=== PATIENT | female | born 1970 | race Caucasian/White ===

== ENCOUNTER 2017-03-20 20:58 | Emergency (ER) | payer MEDICAID ==
[~2017-03-20] VITALS: Ht 139.7 cm; Wt 61.4 kg
[~2017-03-20 20:58] MED LIST: /ESCI20TA PO; CHLO25TA PO; CLON1TAB PO; ESTR25TD TD; KLON0.5T PO; LEXA1TAB PO; NAPR500T3 PO; PERC5TAB12 PO; VENL75TA3 PO; VITA500046 PO
[2017-03-20] MEDS ORDERED: KETOROLAC 30 MG/ML VIAL (J1885) IV ONE (22:15)
[2017-03-20] MEDS ORDERED: TRIMETHOBENZAMIDE HCL INJ 200 MG/2 ML VIAL (J3250) IM ONE (22:15)
[2017-03-20 22:35] LABS: BASO # 0.1 K/mm3 (0.0-0.2); EOS # 0.2 K/mm3 (0.0-0.50); EOS % 1.8 % (0.0-3.0); LARGE UNSTAINED CELL # 0.1 K/mm3 (0.0-0.4); LARGE UNSTAINED CELL % 1.6 % (0.0-4.0); LYMPH # 4.2 K/mm3 (1.5-4.5); LYMPH % 45.2 % (24.0-44.0); MEAN CORPUSCULAR HEMOGLOBIN 28.5 pg (27.0-33.0); MEAN CORPUSCULAR HGB CONC 33.7 g/dl (32.0-36.5); MEAN CORPUSCULAR VOLUME 84.5 fl (80.0-96.0); MONO # 0.4 K/mm3 (0.0-0.8); MONO % 3.9 % (0.0-5.0); NEUTROPHILS # 4.2 K/mm3 (1.8-7.7); NEUTROPHILS % 46.6 % (36.0-66.0); PLATELET COUNT, AUTOMATED 415 k/mm3 (150-450); RED CELL DISTRIBUTION WIDTH 13.8 % (11.5-14.5); WHITE BLOOD COUNT 8.9 K/mm3 (4.0-10.0)
[2017-03-20 23:04] LABS: ALBUMIN/GLOBULIN RATIO 1.08 (1.00-1.93); ALKALINE PHOSPHATASE 101 U/L (45-117); ALT/SGPT 40 U/L (12-78); ANION GAP 5 MEQ/L (8-16); AST/SGOT 23 U/L (15-37); BILIRUBIN,TOTAL 0.2 MG/DL (0.2-1.0); BLOOD UREA NITROGEN 8 MG/DL (7-18); CALCIUM LEVEL 9.6 MG/DL (8.5-10.1); CARBON DIOXIDE LEVEL 30 MEQ/L (21-32); CHLORIDE LEVEL 105 MEQ/L (98-107); CREATININE FOR GFR 0.75 MG/DL (0.55-1.02); GLOMERULAR FILTRATION RATE > 60.0 (>58); GLUCOSE, FASTING 90 MG/DL (70-105); POTASSIUM SERUM 3.4 MEQ/L (3.5-5.1); SODIUM LEVEL 140 MEQ/L (136-145); TOTAL PROTEIN 7.7 GM/DL (6.4-8.2)
--- NOTE | 2017-03-21 00:20 | REPUSA ---
CLINICAL HISTORY: Abdominal pain. TECHNIQUE: Multiple axial, sagittal and coronal CT images were obtained through the abdomen and pelvi s without administration of oral or IV contrast material. COMMENTS: Comparison is made to the prior exam performed on 01/03/2016. The liver remains mildly enlarged decreased attenuation without mass or defect. There is no intra or extrahepatic biliary ductal dilatation. The spleen is normal. The gallbladder is surgically absent. T he pancreas is of normal contour and attenuation characteristics. There is no evidence of adrenal mas s. 6.2 mm left renal nonobstructing stone. Mild changes of facet or mesenteric panniculitis. The kidneys are normal in size, shape and configuration. No right renal or ureteral calculi are ident ified. There is no hydroureter or hydronephrosis. There is no evidence for appendicitis. There is no bowel wall thickening. No evidence for small or la rge bowel obstruction. There is no evidence of abdominal ascites or lymphadenopathy. There is no evidence of intrinsic or extrinsic bladder mass. There is no pelvic ascites or lymphadeno roselia. Fluid-filled stomach. Fluid-filled proximal colon. Prior hysterectomy. Diffusely thickened urinary bl adder. Images of the lung bases show no evidence of pleural or parenchymal mass. There are no pleural effusi ons. The bony structures are free of lytic or blastic lesions. Multilevel degenerative changes are seen in volving the thoracolumbar spine. Scattered calcifications are seen involving the aorta and major branches compatible with atherosclero sis. Fat containing umbilical hernia without incarceration. IMPRESSION: Nonobstructing left nephrolithiasis. Mildly thickened bladder. Under distention versus cystitis. Prior hysterectomy. Hepatomegaly with fatty infiltration. Prior cholecystectomy. Thank you for your kind referral of this patient.
[2017-03-21 00:37] VITALS: BP 132/82
[2017-03-21] MEDS ORDERED: NITROFURANTOIN (MACROBID) 100 MG CAP PO ONE (00:45)
[2017-03-21] MEDS ORDERED: MACR100C43 PO (00:47)
== END 2017-03-21 01:04 | disposition home or self-care (01) ==
LOC: M ED 20:58
DX: N39.0 Urinary tract infection, site not specified (principal); N20.0 Calculus of kidney; I10 Essential (primary) hypertension
CPT/HCPCS: 74176; 80053; 81001; 81025; 85025; 86140; 87086; 96372; 96374; 99283; J1885; J3250

== ENCOUNTER 2017-05-17 13:03 | Emergency (ER) | payer MEDICAID ==
[~2017-05-17] VITALS: Ht 142.2 cm; Wt 61.4 kg
[~2017-05-17 13:03] MED LIST changes: +MACR100C43 PO
[2017-05-17] MEDS ORDERED: EXCETAB80 PO (13:23)
[2017-05-17] MEDS ORDERED: METOCLOPRAMIDE INJ 10MG/2ML VIAL (J2765) IV ONE (14:30)
[2017-05-17] MEDS ORDERED: NS 1,000 ML IV ONE (14:30)
--- NOTE | 2017-05-17 14:44 | REP ---
Clinical: Trauma with severe headaches . Comparison: None . Findings: The ventricles, sulci, and cisterns are normal in position and appearance. Krishnan-white differentiation is maintained. No acute intracranial hemorrhage, mass/mass effect, pathology or trauma/injury. No evidence for acute infarction. No extra-axial fluid collection. Calvarium is intact. Paranasal sinuses and mastoid air cells are clear. Impression: Normal noncontrast head CT. No evidence for acute intracranial pathology or trauma/injury. Signed by Naren Cole MD 05/17/2017 02:35 P
[2017-05-17] MEDS ORDERED: KETOROLAC 30 MG/ML VIAL (J1885) IV ONE (14:45)
[2017-05-17] MEDS ORDERED: ZOFR4TAB3 PO (16:03)
[2017-05-17 16:11] VITALS: BP 133/70
== END 2017-05-17 16:15 | disposition home or self-care (01) ==
LOC: M ED 13:03
DX: G43.109 Migraine with aura, not intractable, without status migrainosus (principal); Z72.0 Tobacco use
CPT/HCPCS: 70450; 96374; 96375; 99283; J1885; J2765

== ENCOUNTER 2017-08-16 15:20 | Emergency (ER) | payer MEDICAID ==
[~2017-08-16] VITALS: Ht 139.7 cm; Wt 59.1 kg
[~2017-08-16 15:20] MED LIST changes: +EXCETAB80 PO; +ZOFR4TAB3 PO
[2017-08-16 16:03] LABS: SPECIFIC GRAVITY UR AUTO RFX 1.003 (1.002-1.035); SQUAM EPITHELIAL CELL UR AURFX 3 /HPF (0-6)
[2017-08-16 16:31] LABS: BASO # 0.1 10^3/uL (0.0-0.2); BASO % 0.8 % (0.0-1.0); EOS # 0.1 10^3/uL (0.0-0.50); EOS % 0.9 % (0.0-3.0); IMMATURE GRANULOCYTE % 0.2 % (0-0); LYMPH % 44.2 % (24.0-44.0); MEAN CORPUSCULAR HEMOGLOBIN 28.7 pg (27.0-33.0); MEAN CORPUSCULAR HGB CONC 34.5 g/dl (32.0-36.5); MEAN CORPUSCULAR VOLUME 83.1 fl (80.0-96.0); MONO # 0.4 10^3/uL (0.0-0.8); MONO % 4.7 % (0.0-5.0); NEUTROPHILS # 4.4 10^3/uL (1.8-7.7); NEUTROPHILS % 49.2 % (36.0-66.0); PLATELET COUNT, AUTOMATED 443 10^3/uL (150-450); RED CELL DISTRIBUTION WIDTH 13.4 % (11.5-14.5)
[2017-08-16 16:53] LABS: ALBUMIN 4.4 GM/DL (3.2-5.2); ALBUMIN/GLOBULIN RATIO 1.16 (1.00-1.93); ALKALINE PHOSPHATASE 98 U/L (45-117); ALT/SGPT 34 U/L (12-78); ANION GAP 8 MEQ/L (8-16); AST/SGOT 20 U/L (7-37); BILIRUBIN,DIRECT < 0.1 MG/DL (0.0-0.2); BILIRUBIN,TOTAL 0.4 MG/DL (0.2-1.0); BLOOD UREA NITROGEN 7 MG/DL (7-18); CALCIUM LEVEL 9.8 MG/DL (8.5-10.1); CARBON DIOXIDE LEVEL 31 MEQ/L (21-32); CHLORIDE LEVEL 102 MEQ/L (98-107); CREATININE FOR GFR 0.77 MG/DL (0.55-1.02); GLOMERULAR FILTRATION RATE > 60.0 (>58); GLUCOSE, FASTING 80 MG/DL (70-105); POTASSIUM SERUM 3.4 MEQ/L (3.5-5.1); SODIUM LEVEL 141 MEQ/L (136-145); TOTAL PROTEIN 8.2 GM/DL (6.4-8.2)
[2017-08-16] MEDS ORDERED: POTASSIUM CHLORIDE 10 MEQ SR TABLET PO ONE (17:15)
[2017-08-16] MEDS ORDERED: CIPROFLOXACIN 500 MG TAB PO ONE (17:15)
[2017-08-16] MEDS ORDERED: CIPR-249 PO (17:26)
[2017-08-16] MEDS ORDERED: PERC5TAB12 PO (17:26)
[2017-08-16 17:51] VITALS: BP 168/72
--- NOTE | 2017-08-17 07:17 | REP ---
REASON: Left flank pain. COMPARISON: 03/20/2017. The lung bases are clear and unchanged. Limited evaluation of the solid intra-abdominal organs are unchanged remaining within normal limits. The patient is status post cholecystectomy. Limited evaluation of the pancreas, adrenals glands, and right kidney show no abnormalities. There is moderate left sided hydronephrosis and hydroureter which can be followed distally into the proximal pelvis where a 9 mm sized ureterolith resides. There is no free fluid in the abdomen or pelvis. The bowel loops and the mesenteries are within normal limits. There is no evidence of an intra-abdominal or intrapelvic mass or adenopathy. Limited evaluation of the abdominal aorta and para-aortic regions show them to be within normal limits. There is no change in the osseous structures. IMPRESSION: 9 mm sized distal left ureterolith with resultant moderate hydronephrosis. Signed by Lloyd Black DO 08/17/2017 08:55 A
--- NOTE | 2017-08-17 08:40 | REP ---
REASON FOR EXAM: Assess for calculi. COMPARISON: KUB 12/07/2012. FINDINGS: KUB shows the intestinal gas pattern to be nonspecific. The organ silhouettes insofar as delineated are unremarkable. There is no evidence of free intraperitoneal air. IMPRESSION: Nonspecific. Signed by Lloyd Black DO 08/17/2017 08:56 A
== END 2017-08-16 17:52 | disposition home or self-care (01) ==
LOC: M ED 15:20
DX: N20.1 Calculus of ureter (principal); Z87.891 Personal history of nicotine dependence

== ENCOUNTER → 2017-08-25 | Outpatient (CLI) | payer MEDICAID ==
[~2017-08-25] MED LIST changes: +CIPR-249 PO; +TYLE500T78 PO
[2017-08-25 12:29] LABS: MEAN CORPUSCULAR HEMOGLOBIN 28.5 pg (27.0-33.0); MEAN CORPUSCULAR HGB CONC 33.8 g/dl (32.0-36.5); MEAN CORPUSCULAR VOLUME 84.2 fl (80.0-96.0); PLATELET COUNT, AUTOMATED 409 10^3/uL (150-450); RED CELL DISTRIBUTION WIDTH 13.8 % (11.5-14.5); WHITE BLOOD COUNT 8.7 10^3/uL (4.0-10.0)
[2017-08-25 12:41] LABS: INR 0.93
[2017-08-25 13:21] LABS: ANION GAP 9 MEQ/L (8-16); BLOOD UREA NITROGEN 7 MG/DL (7-18); CALCIUM LEVEL 9.3 MG/DL (8.5-10.1); CARBON DIOXIDE LEVEL 29 MEQ/L (21-32); CHLORIDE LEVEL 103 MEQ/L (98-107); CREATININE FOR GFR 0.67 MG/DL (0.55-1.02); GLOMERULAR FILTRATION RATE > 60.0 (>58); GLUCOSE, FASTING 83 MG/DL (70-105); POTASSIUM SERUM 3.2 MEQ/L (3.5-5.1); SODIUM LEVEL 141 MEQ/L (136-145)
--- NOTE | 2017-08-25 15:03 | REP ---
Chest x-ray: Two views. History: Preprocedural examination. Comparison chest x-ray: August 13, 2015. Findings: The lungs are well inflated and free of infiltrate. Pleural angles are sharp. Heart size is normal. Pulmonary vasculature is not increased. There are clips in right upper quadrant of the abdomen. No significant bony abnormality. Impression: No acute disease. Signed by Rahat Ogden MD 08/25/2017 04:14 P
--- NOTE | 2017-08-26 06:10 | ECGEPIP ---
Stationary ECG Study [facility] Test Date: 2017-08-25 Pat Name: RUTH AGUILAR Department: Room: - Gender: F Dish Person: RENÉ : 1970 Requested By: Sarah MAC Order Number: [id number] Reading MD: Deric Christianson Measurements Intervals [place] Rate: 74 P: 36 VA: 162 QRS: 33 QRSD: 99 T: 19 QT: 430 QTc: 479 Interpretive Statements SINUS RHYTHM MODERATE T-WAVE ABNORMALITY, CONSIDER ANTERIOR ISCHEMIA Electronically Signed On 08-26-2017 6:09:56 EST by Deric Christianson
== END ==
LOC: M LAB 11:53
PROVIDERS: ATTEND Nurse Practitioner Women's Health
DX: Z01.818 Encounter for other preprocedural examination (principal); N13.2 Hydronephrosis with renal and ureteral calculous obstruction; R94.31 Abnormal electrocardiogram [ECG] [EKG]

== ENCOUNTER 2017-08-29 08:21 | Day surgery (SDC) | payer MEDICAID ==
[~2017-08-29] VITALS: Ht 139.7 cm; Wt 59.0 kg
[2017-08-29] MEDS ORDERED: ceFAZolin 2 GM/D5W 50 ML IV BAG (J0690 PER 500MG) As Ordered ONE (08:45)
[2017-08-29] MEDS ORDERED: LIDOCAINE 1% MDV 20ML VIAL SQ PRN (09:00)
[2017-08-29] MEDS ORDERED: LR 1,000 ML IV ONE (09:00)
[2017-08-29] MEDS ORDERED: CONRAY-60 60% 50ML VIAL (Q9961) As Ordered ONE (09:57)
[2017-08-29] MEDS ORDERED: ONDANSETRON 4MG/2ML VIAL (J2405) As Ordered ONE (09:58)
[2017-08-29] MEDS ORDERED: METOCLOPRAMIDE INJ 10MG/2ML VIAL (J2765) As Ordered ONE (09:58)
[2017-08-29] MEDS ORDERED: LIDOCAINE 2% INJ 100 MG/5 ML SDV (FOR ANES.) As Ordered ONE (09:58)
[2017-08-29] MEDS ORDERED: MIDAZOLAM INJ 2 MG/2 ML VIAL (J2250) As Ordered ONE (09:58)
[2017-08-29] MEDS ORDERED: fentaNYL 100 MCG/2 ML INJECTION (J3010) As Ordered ONE ×2 (09:58→12:04)
[2017-08-29] MEDS ORDERED: PROPOFOL 200 MG/20 ML VIAL As Ordered ONE (09:58)
[2017-08-29] MEDS ORDERED: KETOROLAC 60 MG/2 ML VIAL (J1885) As Ordered ONE (11:10)
[2017-08-29] MEDS ORDERED: fentaNYL 100 MCG/2 ML INJECTION (J3010) IV PRN (13:15)
[2017-08-29] MEDS ORDERED: PERCOCET 5MG/325MG TAB PO PRN ×3 (13:15)
[2017-08-29] MEDS ORDERED: LR 1,000 ML IV SCH (13:15)
[2017-08-29] MEDS ORDERED: ONDANSETRON 4MG/2ML VIAL (J2405) IV PRN (13:15)
[2017-08-29] MEDS ORDERED: oxyBUTYnin 5 MG TAB PO PRN (13:15)
--- NOTE | 2017-08-29 13:41 | REP ---
RETROGRADE PYELOGRAM: Three views. HISTORY: Left stent placement. 40 seconds of fluoroscopy time is reported. FINDINGS: A sequence of three last image hold fluoroscopic spot radiographs of the abdomen document ureteral cannulation, contrast injection, hydronephrosis, and double pigtail ureteral stent placement. No laterality markers are visible. Signed by Rahat Ogden MD 08/29/2017 03:49 P
[2017-08-29 14:30] VITALS: BP 146/80
--- NOTE | 2017-09-02 16:15 | RO ---
DATE OF PROCEDURE: 08/29/2017 PREPROCEDURE DIAGNOSIS: Left ureteral stone. POSTPROCEDURE DIAGNOSIS: Left ureteral stone. PROCEDURE: Cystoscopy, left ureteroscopy with laser lithotripsy and basket extraction of stones, left retrograde pyelogram with intraoperative interpretation of images, left JJ ureteral stent placement. SURGEON: Tato García MD LICENSED APPRAISER: None. PREOPERATIVE ANESTHESIA: General. OPERATIVE INDICATIONS: This is a 47-year-old female who was found to have approximately 1 cm obstructing mid to distal left ureteral stone. She was brought to the operating room today for treatment. DESCRIPTION OF PROCEDURE: The patient was brought to the operating room and general anesthesia was induced. Prophylactic antibiotics were infused. She was then placed in dorsal lithotomy position, prepped and draped in the usual sterile fashion. A rigid cystoscope was inserted into the urethral meatus and advanced to the bladder. Once in the bladder, a guidewire was advanced up the left collecting system. I went up the collecting system and within the mid to distal ureter a stone was seen and it appeared to be very much impacted. At this point, I began using a 200 micron laser fiber to try fragment the stone into smaller pieces. Some of the stone fragments were removed with the basket. Of note, there was a moderate amount of scarring in this area and this made it very hard to get to rest of the stone. I spent a significant amount of time trying to fragment the stone and remove the pieces, but due to all the scarring I was not able to get all the stone removed at this time. I tried to advance the scope passed the stone and due to a large amount of stone left within the ureter I could not get pass the stone either. While doing this with fear of damaging the ureter more, the decision was made to stop at this point and place a stent. I therefore withdrew the ureteroscope and advanced an open-ended ureteral catheter up in to the proximal left collecting system. The wire was removed and a retrograde pyelogram was performed. It was notable for severe left hydroureteronephrosis. There was no extravasation. The wire was then advanced back up the left collecting system and the open-ended ureteral catheter was removed. The wire was then utilized to advance a 7-Prydeinig x 22-32 cm JJ ureteral stent up the left collecting system. The wire was then removed and there were adequate curls of the stent in the left renal pelvis and in the bladder. The bladder was then emptied of all fluid and this marked the conclusion of the procedure. The patient was then taken out of dorsal lithotomy position, awakened from anesthesia and transported to the recovery room in stable condition. ESTIMATED BLOOD LOSS: Minimal. INTRAOPERATIVE COMPLICATIONS: None. SPECIMENS: Kidney stone fragments. PLAN: The patient will require another procedure to try to finish removing the rest of the stone. I will leave the stent in for about 4-6 weeks to allow some time for the ureter to heal and then plan to bring her back to the operating room at that time to try to remove the remainder of the stone. EMMA
== END 2017-08-29 14:50 | disposition home or self-care (01) ==
LOC: M SDC 08:21
PROVIDERS: ATTEND Urology
DX: N20.1 Calculus of ureter (principal); T88.59XD Other complications of anesthesia, subsequent encounter; I10 Essential (primary) hypertension; K21.9 Gastro-esophageal reflux disease without esophagitis; G80.9 Cerebral palsy, unspecified; F41.9 Anxiety disorder, unspecified; F32.9 Major depressive disorder, single episode, unspecified; G43.909 Migraine, unspecified, not intractable, without status migrainosus; R06.83 Snoring; G47.33 Obstructive sleep apnea (adult) (pediatric); E87.6 Hypokalemia; Z88.5 Allergy status to narcotic agent; Z88.8 Allergy status to other drugs, medicaments and biological substances; Z79.899 Other long term (current) drug therapy; Z90.710 Acquired absence of both cervix and uterus; Z98.51 Tubal ligation status; Z87.891 Personal history of nicotine dependence
CPT/HCPCS: 52356; 74420; 82360; 88300; C1769; C2617; J0690; J1885; J2250; J2405; J2765; J3010; Q9961

== ENCOUNTER → 2017-09-30 | Outpatient (CLI) | payer MEDICAID ==
[2017-09-30 17:57] LABS: ANION GAP 7 MEQ/L (8-16); BLOOD UREA NITROGEN 10 MG/DL (7-18); CALCIUM LEVEL 10.2 MG/DL (8.5-10.1); CARBON DIOXIDE LEVEL 34 MEQ/L (21-32); CHLORIDE LEVEL 104 MEQ/L (98-107); CREATININE FOR GFR 0.85 MG/DL (0.55-1.02); GLOMERULAR FILTRATION RATE > 60.0 (>58); GLUCOSE, FASTING 90 MG/DL (70-100); POTASSIUM SERUM 4.1 MEQ/L (3.5-5.1); SODIUM LEVEL 145 MEQ/L (136-145)
[2017-09-30 19:23] LABS: HEMATOCRIT 41.9 % (36.0-47.0); HEMOGLOBIN 13.8 g/dl (12.0-16.0); MEAN CORPUSCULAR HEMOGLOBIN 27.9 pg (27.0-33.0); MEAN CORPUSCULAR HGB CONC 32.9 g/dl (32.0-36.5); MEAN CORPUSCULAR VOLUME 84.8 fl (80.0-96.0); PLATELET COUNT, AUTOMATED 440 10^3/uL (150-450); RED BLOOD COUNT 4.94 10^6/uL (4.00-5.40); RED CELL DISTRIBUTION WIDTH 13.6 % (11.5-14.5)
== END ==
LOC: M SMT 12:02
DX: N20.0 Calculus of kidney (principal); N39.0 Urinary tract infection, site not specified

== ENCOUNTER → 2017-10-03 | Outpatient (REF) | payer MEDICAID | LOC: M SMT 13:32 | DX: N20.0 Calculus of kidney (principal); N39.0 Urinary tract infection, site not specified; Z01.818 Encounter for other preprocedural examination ==

== ENCOUNTER → 2017-10-07 | Outpatient (CLI) | payer MEDICAID ==
[2017-10-07 12:42] LABS: ANION GAP 9 MEQ/L (8-16); BLOOD UREA NITROGEN 8 MG/DL (7-18); CALCIUM LEVEL 9.6 MG/DL (8.5-10.1); CARBON DIOXIDE LEVEL 29 MEQ/L (21-32); CHLORIDE LEVEL 104 MEQ/L (98-107); GLOMERULAR FILTRATION RATE > 60.0 (>58); GLUCOSE, FASTING 77 MG/DL (70-100); POTASSIUM SERUM 3.5 MEQ/L (3.5-5.1); SODIUM LEVEL 142 MEQ/L (136-145)
== END ==
LOC: M LAB 11:30
DX: E87.6 Hypokalemia (principal)
CPT/HCPCS: 80048

== ENCOUNTER 2017-10-09 15:17 | Emergency (ER) | payer MEDICAID ==
[2017-10-09] MEDS: ASPIRIN 81 MG CHEW TABLET PO (16:33)
[2017-10-09 16:38] LABS: BASO # 0.1 10^3/uL (0.0-0.2); BASO % 0.8 % (0.0-1.0); EOS # 0.1 10^3/uL (0.0-0.50); EOS % 0.9 % (0.0-3.0); HEMATOCRIT 39.7 % (36.0-47.0); HEMOGLOBIN 13.3 g/dl (12.0-16.0); IMMATURE GRANULOCYTE % 0.2 % (0-0); LYMPH # 3.9 10^3/uL (1.5-4.5); LYMPH % 37.7 % (24.0-44.0); MEAN CORPUSCULAR HEMOGLOBIN 27.9 pg (27.0-33.0); MEAN CORPUSCULAR HGB CONC 33.5 g/dl (32.0-36.5); MEAN CORPUSCULAR VOLUME 83.4 fl (80.0-96.0); MONO # 0.6 10^3/uL (0.0-0.8); MONO % 5.8 % (0.0-5.0); NEUTROPHILS # 5.7 10^3/uL (1.8-7.7); NEUTROPHILS % 54.6 % (36.0-66.0); PLATELET COUNT, AUTOMATED 485 10^3/uL (150-450); RED BLOOD COUNT 4.76 10^6/uL (4.00-5.40); RED CELL DISTRIBUTION WIDTH 13.5 % (11.5-14.5); WHITE BLOOD COUNT 10.4 10^3/uL (4.0-10.0)
[2017-10-09 16:52] LABS: ANION GAP 4 MEQ/L (8-16); BLOOD UREA NITROGEN 7 MG/DL (7-18); CALCIUM LEVEL 9.6 MG/DL (8.5-10.1); CARBON DIOXIDE LEVEL 32 MEQ/L (21-32); CHLORIDE LEVEL 106 MEQ/L (98-107); CPK CREATINE PHOSPHOKINASE 109 U/L (26-192); GLOMERULAR FILTRATION RATE > 60.0 (>58); GLUCOSE, FASTING 95 MG/DL (70-100); POTASSIUM SERUM 3.2 MEQ/L (3.5-5.1); SODIUM LEVEL 142 MEQ/L (136-145); TROPONIN I < 0.02 NG/ML (< 0.10)
[2017-10-09 16:58] LABS: CK-MB VALUE MASS 1.2 NG/ML (0.0-3.6); THYROID STIMULATING HORMONE 0.756 uIU/ML (0.358-3.740)
[2017-10-09] MEDS: POTASSIUM CHLORIDE 10 MEQ SR TABLET PO (17:53)
== END 2017-10-09 18:10 | disposition home or self-care (01) ==
LOC: M ED 15:17
DX: R07.89 Other chest pain (principal); I10 Essential (primary) hypertension
CPT/HCPCS: 71046

== ENCOUNTER 2017-10-10 06:18 | Day surgery (SDC) | payer MEDICAID ==
[2017-10-10] MEDS: LR 1,000 ML IV (06:56)
[2017-10-10] MEDS ORDERED: MIDAZOLAM INJ 2 MG/2 ML VIAL (J2250) As Ordered (07:08)
[2017-10-10] MEDS ORDERED: fentaNYL 100 MCG/2 ML INJECTION (J3010) As Ordered (07:09)
[2017-10-10] MEDS ORDERED: ONDANSETRON 4MG/2ML VIAL (J2405) As Ordered (07:53)
[2017-10-10] MEDS ORDERED: dexameTHASONE 4 MG/ML 1ML VIAL (J1100) As Ordered (07:53)
[2017-10-10] MEDS ORDERED: KETOROLAC 60 MG/2 ML VIAL (J1885) As Ordered (07:53)
[2017-10-10] MEDS ORDERED: PROPOFOL 200 MG/20 ML VIAL As Ordered (07:53)
[2017-10-10] MEDS ORDERED: LIDOCAINE 2% INJ 100 MG/5 ML SDV (FOR ANES.) As Ordered (07:53)
[2017-10-10] MEDS: CONRAY-60 60% 50ML VIAL (Q9961) As Ordered (08:05)
[2017-10-10] MEDS ORDERED: ESMOLOL INJ 100MG/10ML VIAL As Ordered (08:40)
[2017-10-10] MEDS ORDERED: LR 1,000 ML IV (09:00)
[2017-10-10] MEDS ORDERED: HYDROmorphone HCL 1 MG/ML SYRINGE (J1170) IV (09:00)
[2017-10-10] MEDS ORDERED: ONDANSETRON 4MG/2ML VIAL (J2405) IV (09:00)
[2017-10-10] MEDS ORDERED: oxyBUTYnin 5 MG TAB PO (09:00)
[2017-10-10] MEDS ORDERED: PERCOCET 5MG/325MG TAB PO ×3 (09:00)
[2017-10-10] MEDS ORDERED: METOCLOPRAMIDE INJ 10MG/2ML VIAL (J2765) IV (09:00)
[2017-10-10] MEDS ORDERED: LABETALOL HCL 100 MG/20 ML VIAL IV (09:00)
[2017-10-10] MEDS ORDERED: fentaNYL 100 MCG/2 ML INJECTION (J3010) IV (09:00)
== END 2017-10-10 10:19 | disposition home or self-care (01) ==
LOC: M SDC 06:18
DX: N20.1 Calculus of ureter (principal); N13.5 Crossing vessel and stricture of ureter without hydronephrosis; I10 Essential (primary) hypertension; K21.9 Gastro-esophageal reflux disease without esophagitis; G80.9 Cerebral palsy, unspecified; F41.9 Anxiety disorder, unspecified; F32.9 Major depressive disorder, single episode, unspecified; G43.909 Migraine, unspecified, not intractable, without status migrainosus; G47.33 Obstructive sleep apnea (adult) (pediatric); Z72.0 Tobacco use; Z88.5 Allergy status to narcotic agent; Z88.8 Allergy status to other drugs, medicaments and biological substances; Z79.899 Other long term (current) drug therapy
CPT/HCPCS: 52332

== ENCOUNTER 2017-10-27 17:17 | Emergency (ER) | payer MEDICAID ==
[2017-10-27] MEDS: KETOROLAC 30 MG/ML VIAL (J1885) IV (19:10)
[2017-10-27] MEDS: NS 1,000 ML IV (19:10)
[2017-10-27 19:21] LABS: HEMATOCRIT 40.3 % (36.0-47.0); HEMOGLOBIN 13.6 g/dl (12.0-16.0); MEAN CORPUSCULAR HEMOGLOBIN 28.4 pg (27.0-33.0); MEAN CORPUSCULAR HGB CONC 33.7 g/dl (32.0-36.5); MEAN CORPUSCULAR VOLUME 84.1 fl (80.0-96.0); PLATELET COUNT, AUTOMATED 436 10^3/uL (150-450); RED BLOOD COUNT 4.79 10^6/uL (4.00-5.40); RED CELL DISTRIBUTION WIDTH 13.7 % (11.5-14.5); WHITE BLOOD COUNT 10.3 10^3/uL (4.0-10.0)
[2017-10-27 19:27] LABS: ADD MANUAL DIFFER YES; DIFF SLIDE NUMBER 296; POSITIVE DIFF POS FLAG
[2017-10-27 19:43] LABS: ALBUMIN 4.3 GM/DL (3.2-5.2); ALBUMIN/GLOBULIN RATIO 1.05 (1.00-1.93); ALKALINE PHOSPHATASE 87 U/L (45-117); ALT/SGPT 33 U/L (12-78); ANION GAP 8 MEQ/L (8-16); AST/SGOT 16 U/L (7-37); BILIRUBIN,DIRECT < 0.1 MG/DL (0.0-0.2); BILIRUBIN,TOTAL 0.2 MG/DL (0.2-1.0); BLOOD UREA NITROGEN 8 MG/DL (7-18); CALCIUM LEVEL 9.3 MG/DL (8.5-10.1); CARBON DIOXIDE LEVEL 29 MEQ/L (21-32); CHLORIDE LEVEL 104 MEQ/L (98-107); CREATININE FOR GFR 0.65 MG/DL (0.55-1.30); GLOMERULAR FILTRATION RATE > 60.0 (>58); GLUCOSE, FASTING 84 MG/DL (70-100); POTASSIUM SERUM 3.1 MEQ/L (3.5-5.1); SODIUM LEVEL 141 MEQ/L (136-145); TOTAL PROTEIN 8.4 GM/DL (6.4-8.2)
[2017-10-27 19:48] LABS: KETONE, URINE AUTO RFX NEGATIVE (NEGATIVE); MUCUS, URINE RFX SMALL (NEGATIVE); NITRITE, URINE AUTO RFX NEGATIVE (NEGATIVE); RBC, URINE AUTO RFX 53 /HPF (0-3); SPECIFIC GRAVITY UR AUTO RFX 1.004 (1.002-1.035); SQUAM EPITHELIAL CELL UR AURFX 3 /HPF (0-6); TRANSITIONAL EPITHELIAL AU RFX <1 /HPF
[2017-10-27 19:49] LABS: LEUKOCYTE ESTERASE UR AUTO RFX 3+ (NEGATIVE); WBC, URINE AUTO RFX 22 /HPF (0-3)
[2017-10-27 19:54] LABS: EOSINOPHILS 1 % (0-5); LYMPHOCYTES 50 % (16-52); MONOCYTES 4 % (0-8); NEUTROPHILS 45 % (35-75); PLATELET ESTIMATE INCREASED (NORMAL)
[2017-10-27] MEDS: CIPROFLOXACIN 500 MG TAB PO (20:41)
[2017-10-27] MEDS: POTASSIUM CHLORIDE 10 MEQ SR TABLET PO (20:41)
[2017-10-27] MEDS: NORCO 5/325MG TABLET (BULK FOR ED) PO (20:41)
== END 2017-10-27 20:45 | disposition home or self-care (01) ==
LOC: M ED 17:17
DX: N30.01 Acute cystitis with hematuria (principal); I10 Essential (primary) hypertension; G80.9 Cerebral palsy, unspecified; G47.30 Sleep apnea, unspecified; K76.0 Fatty (change of) liver, not elsewhere classified; F41.9 Anxiety disorder, unspecified; F32.9 Major depressive disorder, single episode, unspecified; Z87.442 Personal history of urinary calculi; F17.200 Nicotine dependence, unspecified, uncomplicated; Z96.0 Presence of urogenital implants; Z79.899 Other long term (current) drug therapy; Z88.5 Allergy status to narcotic agent; Z88.8 Allergy status to other drugs, medicaments and biological substances
CPT/HCPCS: J1885

== ENCOUNTER → 2018-01-01 | Outpatient (CLI) | payer MEDICAID | LOC: M WHC 12:51 | DX: Z12.31 Encounter for screening mammogram for malignant neoplasm of breast (principal); Z78.0 Asymptomatic menopausal state; Z80.3 Family history of malignant neoplasm of breast; Z80.41 Family history of malignant neoplasm of ovary | CPT/HCPCS: 77067 ==

== ENCOUNTER 2018-04-06 20:03 | Emergency (ER) | payer MEDICAID ==
[2018-04-06] MEDS: NS 1,000 ML IV (21:15)
[2018-04-06 22:29] LABS: HEMOGLOBIN 13.6 g/dl (12.0-15.5); MEAN CORPUSCULAR HGB CONC 33.2 g/dl (32.0-36.5); MEAN CORPUSCULAR VOLUME 84.5 fl (80.0-96.0); PLATELET COUNT, AUTOMATED 410 10^3/uL (150-450); RED BLOOD COUNT 4.85 10^6/uL (4.00-5.40); RED CELL DISTRIBUTION WIDTH 13.8 % (11.5-14.5); WHITE BLOOD COUNT 9.4 10^3/uL (4.0-10.0)
[2018-04-06 22:32] LABS: ADD MANUAL DIFFER YES; DIFF SLIDE NUMBER 355; POSITIVE DIFF POS FLAG
[2018-04-06 22:39] LABS: ALBUMIN/GLOBULIN RATIO 1.05 (1.00-1.93); ALKALINE PHOSPHATASE 96 U/L (45-117); ALT/SGPT 38 U/L (12-78); AMYLASE 43 U/L (25-115); ANION GAP 7 MEQ/L (8-16); AST/SGOT 19 U/L (7-37); BILIRUBIN,DIRECT < 0.1 MG/DL (0.0-0.2); BILIRUBIN,TOTAL 0.2 MG/DL (0.2-1.0); BLOOD UREA NITROGEN 8 MG/DL (7-18); CALCIUM LEVEL 10.1 MG/DL (8.5-10.1); CARBON DIOXIDE LEVEL 32 MEQ/L (21-32); CHLORIDE LEVEL 104 MEQ/L (98-107); CREATININE FOR GFR 0.63 MG/DL (0.55-1.30); GLOMERULAR FILTRATION RATE > 60.0 (>58); GLUCOSE, FASTING 85 MG/DL (70-100); LIPASE 120 U/L (73-393); POTASSIUM SERUM 3.9 MEQ/L (3.5-5.1); SODIUM LEVEL 143 MEQ/L (136-145); TOTAL PROTEIN 7.8 GM/DL (6.4-8.2)
[2018-04-06 22:52] LABS: ATYPICAL LYMPH 6 % (0-5); EOSINOPHILS 2 % (0-5); LYMPHOCYTES 33 % (16-52); MONOCYTES 8 % (0-8); NEUTROPHILS 51 % (35-75)
[2018-04-06 22:53] LABS: PLATELET ESTIMATE NORMAL (NORMAL)
[2018-04-06] MEDS: METHOCARBAMOL 500 MG TAB PO (22:57)
[2018-04-06] MEDS: KETOROLAC 30 MG/ML VIAL (J1885) IV (22:57)
== END 2018-04-06 23:22 | disposition home or self-care (01) ==
LOC: M ED 20:03
DX: M54.5 Low back pain (principal); Z87.442 Personal history of urinary calculi; G80.9 Cerebral palsy, unspecified; F41.9 Anxiety disorder, unspecified; F32.9 Major depressive disorder, single episode, unspecified; G47.33 Obstructive sleep apnea (adult) (pediatric); Z87.891 Personal history of nicotine dependence; Z88.5 Allergy status to narcotic agent; Z88.8 Allergy status to other drugs, medicaments and biological substances; Z79.899 Other long term (current) drug therapy
CPT/HCPCS: J1885

== ENCOUNTER 2018-06-07 11:00 | Emergency (ER) | payer MEDICAID | END 2018-06-07 13:01 | disposition home or self-care (01) | LOC: M ED 11:00 | DX: F32.9 Major depressive disorder, single episode, unspecified (principal); I10 Essential (primary) hypertension; G47.30 Sleep apnea, unspecified; G80.9 Cerebral palsy, unspecified; Z88.5 Allergy status to narcotic agent; Z88.8 Allergy status to other drugs, medicaments and biological substances; Z79.899 Other long term (current) drug therapy | CPT/HCPCS: 99284 ==

== ENCOUNTER → 2018-06-20 | Outpatient (CLI) | payer MEDICAID ==
[2018-06-20 11:31] LABS: BASO # 0.1 10^3/uL (0.0-0.2); BASO % 0.8 % (0.0-1.0); EOS # 0.1 10^3/uL (0.0-0.50); EOS % 1.2 % (0.0-3.0); HEMOGLOBIN 14.7 g/dl (12.0-15.5); IMMATURE GRANULOCYTE % 0.4 % (0-3.0); LYMPH # 3.6 10^3/uL (1.5-4.5); LYMPH % 38.4 % (24.0-44.0); MEAN CORPUSCULAR HEMOGLOBIN 28.3 pg (27.0-33.0); MEAN CORPUSCULAR HGB CONC 32.7 g/dl (32.0-36.5); MEAN CORPUSCULAR VOLUME 86.5 fl (80.0-96.0); MONO # 0.5 10^3/uL (0.0-0.8); MONO % 4.8 % (0.0-5.0); NEUTROPHILS # 5.1 10^3/uL (1.8-7.7); NEUTROPHILS % 54.4 % (36.0-66.0); PLATELET COUNT, AUTOMATED 420 10^3/uL (150-450); WHITE BLOOD COUNT 9.3 10^3/uL (4.0-10.0)
[2018-06-20 12:31] LABS: ALBUMIN 4.3 GM/DL (3.2-5.2); ALBUMIN/GLOBULIN RATIO 1.19 (1.00-1.93); ALKALINE PHOSPHATASE 107 U/L (45-117); ALT/SGPT 85 U/L (12-78); ANION GAP 6 MEQ/L (8-16); AST/SGOT 30 U/L (7-37); BILIRUBIN,TOTAL 0.3 MG/DL (0.2-1.0); BLOOD UREA NITROGEN 13 MG/DL (7-18); CALCIUM LEVEL 9.6 MG/DL (8.5-10.1); CARBON DIOXIDE LEVEL 31 MEQ/L (21-32); CHLORIDE LEVEL 105 MEQ/L (98-107); CHOLESTEROL LEVEL 230 MG/DL (<200); CHOLESTEROL RISK RATIO 4.509 (<5); CREATININE FOR GFR 0.65 MG/DL (0.55-1.30); FREE T4 0.91 NG/DL (0.76-1.46); GLOMERULAR FILTRATION RATE > 60.0 (>58); GLUCOSE, FASTING 85 MG/DL (70-100); HDL CHOLESTEROL 51 MG/DL (>40); LDL CHOLESTEROL 151 MG/DL (<100); NON-HDL-C 179 MG/DL; POTASSIUM SERUM 4.1 MEQ/L (3.5-5.1); SODIUM LEVEL 142 MEQ/L (136-145); THYROID STIMULATING HORMONE 0.451 uIU/ML (0.358-3.740); TOTAL PROTEIN 7.9 GM/DL (6.4-8.2); TRIGLYCERIDES LEVEL 141 MG/DL (<150)
== END ==
LOC: M LAB 10:37
DX: Z00.00 Encounter for general adult medical examination without abnormal findings (principal)
CPT/HCPCS: 84443

== ENCOUNTER → 2018-06-25 | Outpatient (REF) | payer MEDICAID ==
[2018-06-25 19:12] LABS: ALBUMIN 4.2 GM/DL (3.2-5.2); ALBUMIN/GLOBULIN RATIO 1.24 (1.00-1.93); ALKALINE PHOSPHATASE 107 U/L (45-117); ALT/SGPT 60 U/L (12-78); ANION GAP 9 MEQ/L (8-16); AST/SGOT 24 U/L (7-37); BILIRUBIN,TOTAL 0.3 MG/DL (0.2-1.0); BLOOD UREA NITROGEN 11 MG/DL (7-18); CALCIUM LEVEL 9.4 MG/DL (8.5-10.1); CARBON DIOXIDE LEVEL 30 MEQ/L (21-32); CHLORIDE LEVEL 104 MEQ/L (98-107); CREATININE FOR GFR 0.74 MG/DL (0.55-1.30); GLOMERULAR FILTRATION RATE > 60.0 (>58); GLUCOSE, FASTING 87 MG/DL (70-100); POTASSIUM SERUM 3.8 MEQ/L (3.5-5.1); SODIUM LEVEL 143 MEQ/L (136-145); TOTAL PROTEIN 7.6 GM/DL (6.4-8.2)
[2018-06-25 19:14] LABS: ESTIMATED AVERAGE GLUCOSE 114 MG/DL (60-110); HEMOGLOBIN A1c 5.6 %
[2018-06-27 16:17] LABS: Lyme Disease IgG/IgM Antibodie <0.91 ISR (0.00-0.90); Lyme Disease IgM Ab Quantitati <0.80 index (0.00-0.79)
== END ==
LOC: M SFHCADAM 16:00
DX: R20.2 Paresthesia of skin (principal)

== ENCOUNTER 2018-07-23 21:01 | Emergency (ER) | payer MEDICAID ==
[2018-07-23] MEDS: NAPROXEN 250 MG TAB PO (22:45)
[2018-07-23] MEDS: NS 1,000 ML IV (23:15)
[2018-07-23 23:55] LABS: HEMATOCRIT 39.2 % (36.0-47.0); MEAN CORPUSCULAR HEMOGLOBIN 28.6 pg (27.0-33.0); MEAN CORPUSCULAR HGB CONC 33.2 g/dl (32.0-36.5); MEAN CORPUSCULAR VOLUME 86.2 fl (80.0-96.0); PLATELET COUNT, AUTOMATED 359 10^3/uL (150-450); RED BLOOD COUNT 4.55 10^6/uL (4.00-5.40); RED CELL DISTRIBUTION WIDTH 14.1 % (11.5-14.5); WHITE BLOOD COUNT 9.5 10^3/uL (4.0-10.0)
[2018-07-23 23:59] LABS: KETONE, URINE AUTO RFX NEGATIVE (NEGATIVE); LEUKOCYTE ESTERASE UR AUTO RFX NEGATIVE (NEGATIVE); MUCUS, URINE RFX SMALL (NEGATIVE); NITRITE, URINE AUTO RFX NEGATIVE (NEGATIVE); RBC, URINE AUTO RFX 4 /HPF (0-3); SPECIFIC GRAVITY UR AUTO RFX 1.024 (1.002-1.035); SQUAM EPITHELIAL CELL UR AURFX 2 /HPF (0-6); WBC, URINE AUTO RFX 8 /HPF (0-3)
[2018-07-24 00:39] LABS: ANION GAP 9 MEQ/L (8-16); BLOOD UREA NITROGEN 15 MG/DL (7-18); CALCIUM LEVEL 9.6 MG/DL (8.5-10.1); CARBON DIOXIDE LEVEL 27 MEQ/L (21-32); CHLORIDE LEVEL 104 MEQ/L (98-107); CREATININE FOR GFR 0.62 MG/DL (0.55-1.30); FREE THYROXINE INDEX 2.9 % (1.3-4.8); GLOMERULAR FILTRATION RATE > 60.0 (>58); GLUCOSE, FASTING 139 MG/DL (70-100); POTASSIUM SERUM 3.5 MEQ/L (3.5-5.1); SODIUM LEVEL 140 MEQ/L (136-145); T UPTAKE 32 % (30-39); THYROXINE (T4) 9.1 UG/DL (4.5-12.0)
== END 2018-07-24 02:29 | disposition home or self-care (01) ==
LOC: M ED 07-24 02:29
DX: E86.0 Dehydration (principal); G80.9 Cerebral palsy, unspecified; F41.9 Anxiety disorder, unspecified; F32.9 Major depressive disorder, single episode, unspecified; Z72.0 Tobacco use; Z79.899 Other long term (current) drug therapy; Z88.5 Allergy status to narcotic agent; Z88.8 Allergy status to other drugs, medicaments and biological substances
CPT/HCPCS: 84443

== ENCOUNTER 2018-11-26 16:42 | Emergency (ER) | payer MEDICAID ==
[~2018-11-26] VITALS: Ht 139.7 cm; Wt 59.1 kg
[2018-11-26 16:42] VITALS: BP 136/69
[~2018-11-26 16:42] MED LIST changes: +ABIL1TAB11 PO; +ABIL1TAB12; -CLON1TAB PO; +CLON1TAB8 PO; +LEXA1TAB2; +NAPR-885 PO; -NAPR500T3 PO; +NORCOTAB PO; +OXYB5TAB10 PO; +ROBA500T PO; +ZOFR4TAB14 PO; -ZOFR4TAB3 PO
--- NOTE | 2018-11-26 17:40 | REP ---
LEFT FINGERS, FOUR VIEWS: HISTORY: Fall. There is no acute fracture or dislocation. The joint spaces are normal in appearance. IMPRESSION:There is no acute fracture or dislocation. Electronically Signed by Nas Cheng MD 11/26/2018 05:49 P
== END 2018-11-26 17:59 | disposition home or self-care (01) ==
LOC: M ED 16:42
DX: S60.052A Contusion of left little finger without damage to nail, initial encounter (principal); S63.637A Sprain of interphalangeal joint of left little finger, initial encounter; X58.XXXA Exposure to other specified factors, initial encounter; Y92.89 Other specified places as the place of occurrence of the external cause; Z87.891 Personal history of nicotine dependence

== ENCOUNTER → 2018-12-04 | Outpatient (CLI) | payer MEDICAID ==
[2018-12-04 10:46] LABS: BASO % 0.6 % (0.0-1.0); EOS # 0.1 10^3/uL (0.0-0.50); EOS % 0.7 % (0.0-3.0); HEMATOCRIT 42.6 % (36.0-47.0); LYMPH % 43.9 % (24.0-44.0); MEAN CORPUSCULAR HEMOGLOBIN 28.3 pg (27.0-33.0); MEAN CORPUSCULAR HGB CONC 32.9 g/dl (32.0-36.5); MEAN CORPUSCULAR VOLUME 86.1 fl (80.0-96.0); MONO # 0.3 10^3/uL (0.0-0.8); MONO % 4.7 % (0.0-5.0); NEUTROPHILS # 3.4 10^3/uL (1.8-7.7); NEUTROPHILS % 49.8 % (36.0-66.0); PLATELET COUNT, AUTOMATED 410 10^3/uL (150-450); RED BLOOD COUNT 4.95 10^6/uL (4.00-5.40); WHITE BLOOD COUNT 6.8 10^3/uL (4.0-10.0)
[2018-12-04 11:13] LABS: ALT/SGPT 37 U/L (12-78); BILIRUBIN,TOTAL 0.4 MG/DL (0.2-1.0); BLOOD UREA NITROGEN 7 MG/DL (7-18); C REACTIVE PROTEIN QUANTITATIV 1.42 MG/DL (0.00-0.30); CALCIUM LEVEL 9.1 MG/DL (8.5-10.1); CARBON DIOXIDE LEVEL 29 MEQ/L (21-32); CHLORIDE LEVEL 105 MEQ/L (98-107); CHOLESTEROL LEVEL 174 MG/DL (<200); CHOLESTEROL RISK RATIO 3.702 (<5); GLOMERULAR FILTRATION RATE > 60.0 (>58); GLUCOSE, FASTING 82 MG/DL (70-100); HDL CHOLESTEROL 47 MG/DL (>40); LDL CHOLESTEROL 109 MG/DL (<100); NON-HDL-C 127 MG/DL; RHEUMATOID FACTOR QUANT < 10.0 IU/ML (<15.0); SODIUM LEVEL 142 MEQ/L (136-145); TOTAL PROTEIN 7.4 GM/DL (6.4-8.2); TRIGLYCERIDES LEVEL 92 MG/DL (<150)
[2018-12-04 11:17] LABS: ERYTHROCYTE SEDIMENTATION RATE 13 mm/hr (0-20)
[2018-12-05 16:40] LABS: ANTI DOUBLE STRAND-DNA AB 3 IU/mL (0-9); ANTINUCLEAR ANTIBODIES DIRECT Positive (Negative); RNP ANTIBODIES <0.2 AI (0.0-0.9); SJOGREN'S ANTI SS-A <0.2 AI (0.0-0.9); SJOGREN'S ANTI SS-B <0.2 AI (0.0-0.9); SMITH ANTIBODIES <0.2 AI (0.0-0.9)
== END ==
LOC: M LAB 09:28
PROVIDERS: ATTEND Family Medicine
DX: R76.8 Other specified abnormal immunological findings in serum (principal); R06.09 Other forms of dyspnea; E66.9 Obesity, unspecified; E78.5 Hyperlipidemia, unspecified

== ENCOUNTER 2018-12-20 10:46 | Emergency (ER) | payer MEDICAID ==
[~2018-12-20] VITALS: Ht 139.7 cm; Wt 63.6 kg
[~2018-12-20 10:46] MED LIST changes: -/ESCI20TA PO; +HYDR-3715 PO; +LEXA1TAB2 PO; -NORCOTAB PO; +VENL-142 PO; -VENL75TA3 PO
[2018-12-20] MEDS: IBUPROFEN 800 MG TAB PO ONE (12:05)
[2018-12-20 12:43] LABS: INFLUENZA A AMPLIFICATION NEGATIVE (NEGATIVE); INFLUENZA B AMPLIFICATION NEGATIVE (NEGATIVE)
[2018-12-20] MEDS ORDERED: ACET-897 PO (12:55)
[2018-12-20] MEDS ORDERED: IBUP80TA PO (12:55)
[2018-12-20 13:04] VITALS: BP 115/72
== END 2018-12-20 13:09 | disposition home or self-care (01) ==
LOC: M ED 10:46
DX: J06.9 Acute upper respiratory infection, unspecified (principal); K76.0 Fatty (change of) liver, not elsewhere classified; Z98.890 Other specified postprocedural states; Z88.5 Allergy status to narcotic agent; Z88.8 Allergy status to other drugs, medicaments and biological substances; Z79.899 Other long term (current) drug therapy

== ENCOUNTER → 2018-12-21 | Outpatient (REF) | payer MEDICAID ==
[~2018-12-21] MED LIST changes: +ACET-897 PO; +IBUP80TA PO
== END ==
LOC: M LAB REF 14:34
PROVIDERS: ATTEND Physician Assistant Medical
DX: J02.0 Streptococcal pharyngitis (principal)

== ENCOUNTER → 2018-12-29 | Outpatient (CLI) | payer MEDICAID ==
--- NOTE | 2018-12-29 14:24 | REP ---
PELVIC ULTRASOUND: Real-time sonographic evaluation of pelvis performed utilizing transabdominal technique. Bladder measures 4.2 x 3.8 x 6.0 cm. Patient has had a prior hysterectomy and bilateral salpingo-oophorectomy. No mass or free fluid is seen in the pelvis. Patient declined endovaginal exam. IMPRESSION: Negative transabdominal pelvic ultrasound status post hysterectomy and bilateral salpingo-oophorectomy. No mass or free fluid. Electronically Signed by Gómez Krishnan MD 12/30/2018 10:26 A
== END ==
LOC: M RAD 11:06
PROVIDERS: ATTEND Obstetrics & Gynecology
DX: R10.2 Pelvic and perineal pain (principal); Z90.79 Acquired absence of other genital organ(s)

== ENCOUNTER → 2019-01-04 | Outpatient (CLI) | payer MEDICAID ==
--- NOTE | 2019-01-04 16:13 | REPMRS ---
Patient History The patient states she had a clinical breast exam in December 2018. Family history of breast cancer and ovarian cancer in maternal grandmother. 3D TOMOSYNTHESIS WAS PERFORMED. Digital Mammo Screening Bilat: January 04, 2019 - Exam #: [id number] Bilateral CC and MLO view(s) were taken. Technologist: Lizzy Love, Technologist Prior study comparison: January 01, 2018, digital woman screen mammo, performed at [facility]. June 22, 2015, bilateral digital mammo screening bilat performed at [facility]. FINDINGS: The breast tissue is heterogeneously dense. This may lower the sensitivity of mammography. There has been no change in the appearance of the mammogram from the prior studies. There is a moderate amount of residual fibroglandular tissue which is fairly symmetric. There is no interval development of dominant mass, areas of architectural distortion, or clustered microcalcification typical of malignancy. Assessment: BI-RADS/ACR category 1 mammogram. Negative Mammogram. Recommendation Routine screening mammogram in 1 year (for women over age 40). This mammogram was interpreted with the aid of an FDA-approved computer-aided dectection system. Electronically Signed By: Gómez Krishnan MD 01/04/19 [id number]
== END ==
LOC: M RAD 08:53
PROVIDERS: ATTEND Obstetrics & Gynecology
DX: Z12.31 Encounter for screening mammogram for malignant neoplasm of breast (principal); Z80.3 Family history of malignant neoplasm of breast; Z80.41 Family history of malignant neoplasm of ovary

== ENCOUNTER 2019-01-12 16:43 | Emergency (ER) | payer MEDICAID ==
[~2019-01-12] VITALS: Ht 139.7 cm; Wt 60.6 kg
[2019-01-12] MEDS ORDERED: ONDA4TAB5 (16:53)
[2019-01-12] MEDS ORDERED: PANTOPRAZOLE 40MG INJ (PROTONIX) (C9113) IV ONE (18:30)
[2019-01-12] MEDS ORDERED: NS 1,000 ML IV ONE (18:30)
[2019-01-12] MEDS ORDERED: KETOROLAC 30 MG/ML VIAL (J1885) IV ONE (18:30)
[2019-01-12] MEDS ORDERED: ONDANSETRON 4MG/2ML VIAL (J2405) IV ONE (18:30)
[2019-01-12 20:15] LABS: BASO % 0.4 % (0.0-1.0); EOS # 0.1 10^3/uL (0.0-0.50); EOS % 0.5 % (0.0-3.0); HEMATOCRIT 44.9 % (36.0-47.0); LYMPH # 4.1 10^3/uL (1.5-4.5); MEAN CORPUSCULAR HEMOGLOBIN 28.6 pg (27.0-33.0); MEAN CORPUSCULAR HGB CONC 33.4 g/dl (32.0-36.5); MEAN CORPUSCULAR VOLUME 85.7 fl (80.0-96.0); MONO # 0.5 10^3/uL (0.0-0.8); MONO % 4.9 % (0.0-5.0); NEUTROPHILS # 4.9 10^3/uL (1.8-7.7); NEUTROPHILS % 51.1 % (36.0-66.0); PLATELET COUNT, AUTOMATED 422 10^3/uL (150-450); RED BLOOD COUNT 5.24 10^6/uL (4.00-5.40); WHITE BLOOD COUNT 9.6 10^3/uL (4.0-10.0)
[2019-01-12 20:51] LABS: BILIRUBIN, URINE MANUAL NEGATIVE (NEGATIVE); GLUCOSE, URINE (UA) MANUAL NEGATIVE (NEGATIVE); KETONE, URINE MANUAL 3+ mg/dL (NEGATIVE); UROBILINOGEN, URINE MANUAL NORMAL (NORMAL)
[2019-01-12 21:00] LABS: ALBUMIN 4.6 GM/DL (3.2-5.2); ALT/SGPT 43 U/L (12-78); BILIRUBIN,DIRECT < 0.1 MG/DL (0.0-0.2); BILIRUBIN,TOTAL 0.6 MG/DL (0.2-1.0); BLOOD UREA NITROGEN 10 MG/DL (7-18); CALCIUM LEVEL 10.1 MG/DL (8.5-10.1); CARBON DIOXIDE LEVEL 27 MEQ/L (21-32); CHLORIDE LEVEL 106 MEQ/L (98-107); CREATININE FOR GFR 0.58 MG/DL (0.55-1.30); GLOMERULAR FILTRATION RATE > 60.0 (>58); GLUCOSE, FASTING 76 MG/DL (70-100); LIPASE 86 U/L (73-393); POTASSIUM SERUM 3.8 MEQ/L (3.5-5.1); SODIUM LEVEL 141 MEQ/L (136-145)
[2019-01-12 21:02] LABS: BACTERIA, URINE SMALL AMOUNT; HYALINE CAST, URINE NONE SEEN /lpf (0-1); MUCUS, URINE MOD AMOUNT (NEGATIVE); RBC, URINE 0-1 /hpf (0-3); SQUAMOUS EPITHELIAL CELL URINE SMALL AMOUNT /hpf (SMALL AMT)
[2019-01-12] MEDS ORDERED: ZOFR4TAB16 PO (21:08)
[2019-01-12] MEDS ORDERED: ASAC800T3 PO (21:08)
[2019-01-12 21:12] VITALS: BP 123/76
--- NOTE | 2019-01-13 08:44 | REP ---
CT abdomen and pelvis without IV or oral contrast: Repeat dictation. History: Abdominal pain. Preliminary report is provided at time of exam by [facility]. Comparison study: April 06, 2018. Findings: Preliminary digital customer experience retail clerk radiograph demonstrates a S-shaped thoracolumbar scoliosis. Bowel gas pattern is normal. The lung bases are clear. Axial CT images show no focal hepatic or splenic lesion. Neither of these organs is enlarged. There are clips in the gallbladder fossa post cholecystectomy. No adrenal lesion is seen on either side. Pancreas is unremarkable. The kidneys are morphologically intact. There is no evidence of intrarenal calculus or hydronephrosis. The right renal artery is duplicated. No retroperitoneal mass or adenopathy is seen. Small and large intestinal bowel loops are normal in the abdomen and pelvis. Normal appendix is seen in the right lower quadrant. The uterus is surgically absent. No abdominal wall defect is seen. Bone window settings show no bony destructive lesion. Impression: No acute abdominal abnormality. Post hysterectomy and cholecystectomy. Scoliosis. Electronically Signed by Rahat Ogden MD 01/13/2019 03:37 P
== END 2019-01-12 21:18 | disposition home or self-care (01) ==
LOC: M ED 16:43
DX: K29.70 Gastritis, unspecified, without bleeding (principal); Z87.442 Personal history of urinary calculi; M41.9 Scoliosis, unspecified; Z79.899 Other long term (current) drug therapy; Z88.5 Allergy status to narcotic agent; Z88.8 Allergy status to other drugs, medicaments and biological substances
CPT/HCPCS: 74176; 80048; 80076; 81000; 83690; 85025; 96374; 96375; 99284; C9113; J1885; J2405

== ENCOUNTER 2019-06-22 16:34 | Emergency (ER) | payer MEDICAID ==
[~2019-06-22] VITALS: Ht 139.7 cm; Wt 61.4 kg
[~2019-06-22 16:34] MED LIST changes: +ASAC800T3 PO; +ONDA4TAB5; +ZOFR4TAB16 PO
[2019-06-22] MEDS ORDERED: BUSP10TA (16:55)
[2019-06-22 19:04] LABS: BASO # 0.1 10^3/uL (0.0-0.2); BASO % 0.7 % (0.0-1.0); EOS # 0.1 10^3/uL (0.0-0.5); EOS % 1.1 % (0.0-3.0); HEMATOCRIT 41.2 % (36.0-47.0); LYMPH # 4.3 10^3/uL (1.5-5.0); LYMPH % 48.4 % (24.0-44.0); MEAN CORPUSCULAR HEMOGLOBIN 29.3 pg (27.0-33.0); MEAN CORPUSCULAR VOLUME 86.2 fl (80.0-96.0); MONO # 0.5 10^3/uL (0.0-0.8); MONO % 5.4 % (0.0-5.0); NEUTROPHILS # 3.9 10^3/uL (1.5-8.5); NEUTROPHILS % 44.2 % (36.0-66.0); PLATELET COUNT, AUTOMATED 376 10^3/uL (150-450); RED BLOOD COUNT 4.78 10^6/uL (4.00-5.40); WHITE BLOOD COUNT 8.8 10^3/uL (4.0-10.0)
[2019-06-22 19:28] LABS: ALBUMIN 3.9 GM/DL (3.2-5.2); ALT/SGPT 29 U/L (12-78); BILIRUBIN,TOTAL 0.3 MG/DL (0.2-1.0); BLOOD UREA NITROGEN 12 MG/DL (7-18); C REACTIVE PROTEIN QUANTITATIV 0.57 MG/DL (0.00-0.30); CARBON DIOXIDE LEVEL 32 MEQ/L (21-32); CHLORIDE LEVEL 103 MEQ/L (98-107); CREATININE FOR GFR 0.64 MG/DL (0.55-1.30); GLOMERULAR FILTRATION RATE > 60.0 (>58); GLUCOSE, FASTING 85 MG/DL (70-100); POTASSIUM SERUM 3.7 MEQ/L (3.5-5.1); SODIUM LEVEL 139 MEQ/L (136-145); TOTAL PROTEIN 7.3 GM/DL (6.4-8.2)
[2019-06-22 19:32] LABS: ERYTHROCYTE SEDIMENTATION RATE 9 mm/hr (0-20)
[2019-06-22] MEDS ORDERED: ACETAMINOPHEN 325 MG TAB PO ONE (19:45)
[2019-06-22] MEDS ORDERED: ONDANSETRON 4MG/2ML VIAL (J2405) IV ONE (19:45)
[2019-06-22] MEDS ORDERED: KETOROLAC 30 MG/ML VIAL (J1885) IV ONE (19:45)
[2019-06-22] MEDS ORDERED: NS 1,000 ML IV ONE (19:45)
[2019-06-22 22:12] VITALS: BP 132/84
--- NOTE | 2019-06-23 08:10 | REP ---
CT brain: 06/22/2019. Indication: Headache. Comparison: 05/17/2017. Technique: Unenhanced axial CT images of the brain were obtained from skull base to vertex. Findings: There is no acute intracranial hemorrhage, acute cortical infarction, mass effect, hydrocephalus or significant fluid within the visualized paranasal sinuses/mastoid air cells. The calvarium is intact. There are a few patchy areas of hypoattenuation scattered throughout the white matter most consistent with chronic small vessel disease. Impression: No acute intracranial process. Electronically Signed by Hubert Rivas DO 06/23/2019 08:02 A
== END 2019-06-22 22:14 | disposition home or self-care (01) ==
LOC: M ED 16:34
DX: E86.0 Dehydration (principal); I10 Essential (primary) hypertension; G80.9 Cerebral palsy, unspecified; G47.30 Sleep apnea, unspecified; Z79.899 Other long term (current) drug therapy; Z88.5 Allergy status to narcotic agent; Z88.8 Allergy status to other drugs, medicaments and biological substances; Z87.891 Personal history of nicotine dependence
CPT/HCPCS: 70450; 80053; 85025; 85652; 86140; 96374; 96375; 99284; J1885; J2405

== ENCOUNTER 2020-05-22 19:56 | Emergency (ER) | payer MEDICAID ==
[~2020-05-22] VITALS: Ht 142.2 cm; Wt 53.8 kg
[~2020-05-22 19:56] MED LIST changes: +BUSP10TA; +ONDA-83; -ONDA4TAB5
[2020-05-22] MEDS ORDERED: KETOROLAC 30 MG/ML 1ML VIAL IV ONE (21:15)
[2020-05-22] MEDS ORDERED: NS 1,000 ML IV ONE (21:15)
[2020-05-22 21:40] LABS: HEMATOCRIT 39.2 % (36.0-47.0); HEMOGLOBIN 13.3 g/dl (12.0-15.5); MEAN CORPUSCULAR HEMOGLOBIN 28.9 pg (27.0-33.0); MEAN CORPUSCULAR HGB CONC 33.9 g/dl (32.0-36.5); PLATELET COUNT, AUTOMATED 372 10^3/uL (150-450); RED BLOOD COUNT 4.61 10^6/uL (4.00-5.40); WHITE BLOOD COUNT 9.7 10^3/uL (4.0-10.0)
[2020-05-22 22:00] LABS: ALBUMIN 3.9 GM/DL (3.2-5.2); ALT/SGPT 37 U/L (12-78); BILIRUBIN,DIRECT < 0.1 MG/DL (0.0-0.2); BILIRUBIN,TOTAL 0.2 MG/DL (0.2-1.0); LIPASE 73 U/L (73-393); TOTAL PROTEIN 7.5 GM/DL (6.4-8.2)
[2020-05-22 22:14] LABS: ATYPICAL LYMPH 4 % (0-5); EOSINOPHILS 4 % (0-3); LYMPHOCYTES 37 % (16-44); MONOCYTES 3 % (0-5); NEUTROPHILS 52 % (28-66); PLATELET ESTIMATE NORMAL (NORMAL)
--- NOTE | 2020-05-22 23:41 | REPVR ---
PROCEDURE INFORMATION: Exam: CT Abdomen And Pelvis Without Contrast Exam date and time: 05/22/2020 11:17 PM Age: 50 years old Clinical indication: Abdominal pain; Flank; Left; Additional info: Left flank pain TECHNIQUE: Imaging protocol: Computed tomography of the abdomen and pelvis without contrast. Radiation optimization: All CT scans at this facility use at least one of these dose optimization techniques: automated exposure control; mA and/or kV adjustment per patient size (includes targeted exams where dose is matched to clinical indication); or iterative reconstruction. COMPARISON: CT ABD PELVIS W/O CONTRAST 01/12/2019 6:36 PM FINDINGS: Liver: Liver appears normal with no focal abnormality. Gallbladder and bile ducts: Gallbladder is surgically absent. Pancreas: Pancreas appears normal. No focal mass or peripancreatic inflammation. Spleen: Spleen appears homogeneous without focal mass. Adrenals: Adrenal glands are normal in appearance. Kidneys and ureters: Right kidney demonstrates no stone or obstruction. Left kidney demonstrates mild perinephric stranding with moderately severe left hydronephrosis. At the sciatic notch level there is an irregular 3 x 3 mm left ureter calculus, axial image 110. Distal to this level, the left ureter is normal in caliber. Stomach and bowel: No evidence of small bowel obstruction. No evidence of acute diverticulitis. Appendix: No evidence of acute appendicitis. Intraperitoneal space: No pneumoperitoneum. Vasculature: No aortic aneurysm. Lymph nodes: . No enlarged lymph nodes. Bladder: Urinary bladder appears normal. Reproductive: Uterus is surgically absent. Bones/joints: Bony structures are normal except for lumbar spine degenerative disc changes. Soft tissues: Unremarkable. Other findings: Limited evaluation without enteric or IV contrast. IMPRESSION: Moderately severe left hydroureteronephrosis secondary to a 3 x 3 mm distal left ureter stone at the sciatic notch level. Electronically signed by: Lukasz Starkey On 05/22/2020 23:40:49 PM
[2020-05-23] MEDS ORDERED: TAMSULOSIN 0.4 MG CAP PO ONE
[2020-05-23] MEDS ORDERED: cefTRIAXone SOD 1 GM in D5W MINI-BAG PLUS 50 ML IV ONE ×2
[2020-05-23] MEDS ORDERED: NORCO 5/325MG TABLET (BULK FOR ED) PO ONE
[2020-05-23] MEDS ORDERED: KETOROLAC 30 MG/ML 1ML VIAL IV ONE
[2020-05-23] MEDS ORDERED: FLOM0.4C39 PO ×2 (00:14→00:39)
[2020-05-23] MEDS ORDERED: MACR100C43 PO (00:39)
[2020-05-23 00:45] VITALS: BP 149/78
== END 2020-05-23 00:46 | disposition home or self-care (01) ==
LOC: M ED 19:56
DX: N20.1 Calculus of ureter (principal); N39.0 Urinary tract infection, site not specified; I10 Essential (primary) hypertension; G80.9 Cerebral palsy, unspecified; Z79.899 Other long term (current) drug therapy; Z88.5 Allergy status to narcotic agent; Z88.8 Allergy status to other drugs, medicaments and biological substances
CPT/HCPCS: 74176; 80047; 80076; 81001; 83690; 84702; 85025; 87086; 96361; 96365; 96375; 96376; 99284; J0696; J1885

== ENCOUNTER 2023-04-10 10:23 | Emergency (ER) | payer MEDICAID ==
[~2023-04-10] VITALS: Ht 139.7 cm; Wt 59.2 kg
[~2023-04-10 10:23] MED LIST changes: +FLOM0.4C39 PO
[2023-04-10] MEDS ORDERED: LIDOCAINE 5% (LIDODERM) PATCH TD ONE (10:35)
[2023-04-10] MEDS ORDERED: ACETAMINOPHEN 500 MG TAB PO ONE (10:35)
[2023-04-10] MEDS ORDERED: IBUPROFEN 400MG TAB PO ONE (10:35)
[2023-04-10] MEDS ORDERED: DULO1CAP4 PO (11:28)
[2023-04-10] MEDS ORDERED: DULO-34 PO (11:28)
[2023-04-10] MEDS ORDERED: fentaNYL 100 MCG/2 ML INJECTION IV ONE (12:00)
[2023-04-10] MEDS ORDERED: PERCOCET 5MG/325MG TAB PO ONE ×2 (12:05→13:55)
[2023-04-10] MEDS ORDERED: PERC5TAB12 PO (15:57)
[2023-04-10 16:33] VITALS: BP 172/91; TEMP 98.2; O2SAT 95
== END 2023-04-10 16:33 | disposition home or self-care (01) ==
LOC: EDBD 10:23 → M ED 10:23
DX: S22.080A Wedge compression fracture of T11-T12 vertebra, initial encounter for closed fracture (principal); W01.0XXA Fall on same level from slipping, tripping and stumbling without subsequent striking against object, initial encounter; Y92.89 Other specified places as the place of occurrence of the external cause; Y93.01 Activity, walking, marching and hiking; Y99.8 Other external cause status; G80.9 Cerebral palsy, unspecified; L94.9 Localized connective tissue disorder, unspecified; G47.33 Obstructive sleep apnea (adult) (pediatric); Z87.891 Personal history of nicotine dependence; F32.A Depression, unspecified; F41.9 Anxiety disorder, unspecified; Z88.5 Allergy status to narcotic agent; Z88.8 Allergy status to other drugs, medicaments and biological substances; Z79.899 Other long term (current) drug therapy

== ENCOUNTER → 2023-04-18 | Outpatient (CLI) | payer MEDICAID ==
[~2023-04-18] MED LIST changes: +DULO-34 PO; +DULO1CAP4 PO
== END ==
LOC: M SOG 13:57
PROVIDERS: ATTEND Orthopaedic Surgery
DX: S32.018A Other fracture of first lumbar vertebra, initial encounter for closed fracture (principal); Y93.9 Activity, unspecified; Y92.9 Unspecified place or not applicable

== ENCOUNTER → 2023-05-30 | Outpatient (CLI) | payer MEDICAID | LOC: M SOG 07:54 | PROVIDERS: ATTEND Orthopaedic Surgery | DX: S32.018D Other fracture of first lumbar vertebra, subsequent encounter for fracture with routine healing (principal) ==

== ENCOUNTER → 2023-05-30 | Outpatient (CLI) | payer MEDICAID ==
[2023-05-30 17:19] LABS: ALBUMIN 4.1 G/DL (3.2-5.2); ALKALINE PHOSPHATASE 95 U/L (46-116); ALT/SGPT 23 U/L (7.0-40); AST/SGOT 18 U/L (<34); BILIRUBIN,TOTAL 0.4 MG/DL (0.3-1.2); BLOOD UREA NITROGEN 12 MG/DL (9-23); CALCIUM LEVEL 10.3 MG/DL (8.5-10.1); CARBON DIOXIDE LEVEL 30 MMOL/L (20-31); CHLORIDE LEVEL 103 MMOL/L (98-107); CREATININE FOR GFR 0.73 MG/DL (0.55-1.30); GLOMERULAR FILTRATION RATE > 60.0 (>51); GLUCOSE, FASTING 105 MG/DL (60-100); POTASSIUM SERUM 3.9 MMOL/L (3.5-5.1); SODIUM LEVEL 140 MMOL/L (136-145); TOTAL 25(OH) VITAMIN D 24.8 NG/ML (20.0-100.0)
[2023-05-30 17:29] LABS: BASO # 0.1 10^3/uL (0.0-0.2); BASO % 0.5 % (0.0-1.0); EOS # 0.1 10^3/uL (0.0-0.5); EOS % 0.9 % (0.0-3.0); HEMATOCRIT 42.5 % (36.0-47.0); LYMPH # 3.4 10^3/uL (1.5-5.0); LYMPH % 37.5 % (24.0-44.0); MEAN CORPUSCULAR HEMOGLOBIN 28.6 pg (27.0-33.0); MEAN CORPUSCULAR HGB CONC 32.9 g/dl (32.0-36.5); MEAN CORPUSCULAR VOLUME 86.9 fl (80.0-96.0); MONO # 0.7 10^3/uL (0.0-0.8); MONO % 7.3 % (2.0-8.0); NEUTROPHILS # 4.9 10^3/uL (1.5-8.5); NEUTROPHILS % 53.5 % (36.0-66.0); PLATELET COUNT, AUTOMATED 422 10^3/uL (150-450); RED BLOOD COUNT 4.89 10^6/uL (4.00-5.40); WHITE BLOOD COUNT 9.2 10^3/uL (4.0-10.0)
== END ==
LOC: M PLALAB 12:34
PROVIDERS: ATTEND Orthopaedic Surgery
DX: S32.018D Other fracture of first lumbar vertebra, subsequent encounter for fracture with routine healing (principal)

== ENCOUNTER → 2023-06-13 | Outpatient (CLI) | payer MEDICAID | LOC: M SOG 15:07 | PROVIDERS: ATTEND Orthopaedic Surgery | DX: M54.6 Pain in thoracic spine (principal); S32.018D Other fracture of first lumbar vertebra, subsequent encounter for fracture with routine healing ==

== ENCOUNTER → 2023-12-12 | Outpatient (CLI) | payer MEDICAID ==
[~2023-12-12] MED LIST changes: -OXYB5TAB10 PO; +OXYB5TAB14 PO
[2023-12-12 11:23] LABS: HEMATOCRIT 43.7 % (36.0-47.0); HEMOGLOBIN 14.6 g/dl (12.0-15.5); MEAN CORPUSCULAR HEMOGLOBIN 28.5 pg (27.0-33.0); MEAN CORPUSCULAR HGB CONC 33.4 g/dl (32.0-36.5); MEAN CORPUSCULAR VOLUME 85.2 fl (80.0-96.0); PLATELET COUNT, AUTOMATED 449 10^3/uL (150-450); RED BLOOD COUNT 5.13 10^6/uL (4.00-5.40); WHITE BLOOD COUNT 8.1 10^3/uL (4.0-10.0)
[2023-12-12 11:38] LABS: HEMOGLOBIN A1c 5.2 % (4.0-6.0)
[2023-12-12 11:49] LABS: CHOLESTEROL RISK RATIO 4.14 (<5); HDL CHOLESTEROL 53.3 MG/DL (>40); LDL CHOLESTEROL 141.7 MG/DL (<100); NON-HDL-C 167.7 MG/DL
== END ==
LOC: M LAB 10:24
PROVIDERS: ATTEND Physician Assistant
DX: R03.0 Elevated blood-pressure reading, without diagnosis of hypertension (principal); Z86.39 Personal history of other endocrine, nutritional and metabolic disease; Z83.3 Family history of diabetes mellitus

== ENCOUNTER 2024-12-03 13:41 | Outpatient (RCR) | payer MEDICAID | END 2024-12-06 | LOC: M PT 13:41 | PROVIDERS: ATTEND Physician Assistant Medical | DX: G80.9 Cerebral palsy, unspecified (principal) ==

== ENCOUNTER 2024-12-31 15:12 | Outpatient (RCR) | payer MEDICAID ==
[~2024-12-31 15:12] MED LIST changes: -FLOM0.4C39 PO; +TAMS-18 PO
== END 2025-01-05 ==
LOC: M PT 15:12
PROVIDERS: ATTEND Physician Assistant Medical
DX: G80.9 Cerebral palsy, unspecified (principal)

== ENCOUNTER → 2025-01-05 | Outpatient (CLI) | payer MEDICAID ==
[~2025-01-05] MED LIST changes: +LOSA25TA13; +LURA60TA; +MECL-209 PO
[2025-01-05 16:47] LABS: BASO # 0.1 10^3/uL (0.0-0.2); BASO % 0.7 % (0.0-1.0); EOS # 0.1 10^3/uL (0.0-0.5); EOS % 0.9 % (0.0-3.0); HEMATOCRIT 45.4 % (36.0-47.0); HEMOGLOBIN 15.1 g/dl (12.0-15.5); LYMPH # 4.4 10^3/uL (1.5-5.0); LYMPH % 43.5 % (24.0-44.0); MEAN CORPUSCULAR HEMOGLOBIN 28.6 pg (27.0-33.0); MEAN CORPUSCULAR HGB CONC 33.3 g/dl (32.0-36.5); MONO # 0.5 10^3/uL (0.0-0.8); MONO % 5.4 % (2.0-8.0); NEUTROPHILS % 49.2 % (36.0-66.0); PLATELET COUNT, AUTOMATED 428 10^3/uL (150-450); RED BLOOD COUNT 5.28 10^6/uL (4.00-5.40); WHITE BLOOD COUNT 10.1 10^3/uL (4.0-10.0)
[2025-01-05 17:12] LABS: ALKALINE PHOSPHATASE 94 U/L (35-104); ALT/SGPT 30 U/L (7.0-40); AST/SGOT 15 U/L (<34); BILIRUBIN,TOTAL 0.2 MG/DL (0.3-1.2); BLOOD UREA NITROGEN 9 MG/DL (9-23); CALCIUM LEVEL 9.4 MG/DL (8.5-10.1); CARBON DIOXIDE LEVEL 29 MMOL/L (20-31); CHLORIDE LEVEL 102 MMOL/L (98-107); CHOLESTEROL LEVEL 212 MG/DL (<200); CHOLESTEROL RISK RATIO 4.03 (<5); CREATININE FOR GFR 0.66 MG/DL (0.55-1.30); GLOMERULAR FILTRATION RATE > 90.0 (>51); GLUCOSE, FASTING 95 MG/DL (60-100); HDL CHOLESTEROL 52.5 MG/DL (>40); LDL CHOLESTEROL 131.7 MG/DL (<100); NON-HDL-C 159.5 MG/DL; POTASSIUM SERUM 3.6 MMOL/L (3.5-5.1); SODIUM LEVEL 139 MMOL/L (136-145); TRIGLYCERIDES LEVEL 139 MG/DL (<150)
[2025-01-05 17:14] LABS: THYROID STIMULATING HORMONE 1.235 uIU/ML (0.55-4.78)
== END ==
LOC: M LAB 16:09
PROVIDERS: ATTEND Physician Assistant Medical
DX: I10 Essential (primary) hypertension (principal)

== ENCOUNTER 2025-01-07 10:59 | Emergency (ER) | payer MEDICAID ==
[~2025-01-07] VITALS: Ht 144.8 cm; Wt 59.1 kg
[~2025-01-07 10:59] MED LIST changes: -LOSA25TA13; -LURA60TA; -MECL-209 PO
[2025-01-07 12:10] LABS: BASO # 0.1 10^3/uL (0.0-0.2); BASO % 0.7 % (0.0-1.0); EOS # 0.1 10^3/uL (0.0-0.5); EOS % 0.8 % (0.0-3.0); HEMATOCRIT 43.4 % (36.0-47.0); HEMOGLOBIN 14.5 g/dl (12.0-15.5); LYMPH % 44.6 % (24.0-44.0); MEAN CORPUSCULAR HEMOGLOBIN 28.7 pg (27.0-33.0); MEAN CORPUSCULAR HGB CONC 33.4 g/dl (32.0-36.5); MEAN CORPUSCULAR VOLUME 85.8 fl (80.0-96.0); MONO # 0.5 10^3/uL (0.0-0.8); MONO % 5.1 % (2.0-8.0); NEUTROPHILS # 4.4 10^3/uL (1.5-8.5); NEUTROPHILS % 48.6 % (36.0-66.0); PLATELET COUNT, AUTOMATED 408 10^3/uL (150-450); RED BLOOD COUNT 5.06 10^6/uL (4.00-5.40)
[2025-01-07 12:52] LABS: ALKALINE PHOSPHATASE 102 U/L (35-104); ALT/SGPT 27 U/L (7.0-40); AST/SGOT 14 U/L (<34); BILIRUBIN,DIRECT < 0.1 MG/DL (<0.4); BILIRUBIN,TOTAL 0.2 MG/DL (0.3-1.2); BLOOD UREA NITROGEN 9 MG/DL (9-23); CARBON DIOXIDE LEVEL 29 MMOL/L (20-31); CHLORIDE LEVEL 102 MMOL/L (98-107); CK-MB VALUE MASS < 1.0 NG/ML (<3.6); CPK CREATINE PHOSPHOKINASE 49 U/L (34-145); CREATININE FOR GFR 0.72 MG/DL (0.55-1.30); GLOMERULAR FILTRATION RATE > 90.0 (>51); GLUCOSE, FASTING 81 MG/DL (60-100); MAGNESIUM LEVEL 1.9 MG/DL (1.8-2.4); MB/CK RELATIVE INDEX 2.04 (< OR =4); POTASSIUM SERUM 3.8 MMOL/L (3.5-5.1); SODIUM LEVEL 141 MMOL/L (136-145)
[2025-01-07 12:55] LABS: THYROID STIMULATING HORMONE 1.048 uIU/ML (0.55-4.78)
[2025-01-07] MEDS ORDERED: LOSA25TA13 (13:27)
[2025-01-07] MEDS ORDERED: LURA60TA (13:27)
[2025-01-07] MEDS: ACETAMINOPHEN *IV* 1,000 MG in IV 1 EA IV ONE (13:50)
[2025-01-07] MEDS: diazePAM 10MG/2ML SYRINGE IV ONE (13:50)
[2025-01-07 14:11] LABS: INR 0.9; PARTIAL THROMBOPLASTIN TIME 27.9 SECONDS (24.8-34.2); PROTHROMBIN TIME 12.4 SECONDS (12.5-14.5)
[2025-01-07] MEDS ORDERED: MECL-209 PO (16:45)
[2025-01-07] MEDS: MECLIZINE 25 MG TABLET PO ONE (16:47)
[2025-01-07 17:00] VITALS: BP 168/81; TEMP 99.2; O2SAT 94
== END 2025-01-07 17:05 | disposition home or self-care (01) ==
LOC: M ED 10:59
DX: R42 Dizziness and giddiness (principal); I10 Essential (primary) hypertension; F41.9 Anxiety disorder, unspecified; F32.9 Major depressive disorder, single episode, unspecified; G80.9 Cerebral palsy, unspecified; Z87.442 Personal history of urinary calculi; Z79.899 Other long term (current) drug therapy; Z88.5 Allergy status to narcotic agent; Z88.8 Allergy status to other drugs, medicaments and biological substances
CPT/HCPCS: 70450; 70544; 70547; 70551; 80048; 80076; 82550; 82553; 83735; 84443; 84484; 85025; 85610; 85730; 93005; 93041; 94760; 99285; J0131; J3360

== ENCOUNTER → 2025-01-11 | Outpatient (REF) | payer MEDICAID ==
[~2025-01-11] MED LIST changes: +LOSA25TA13; +LURA60TA; +MECL-209 PO
[2025-01-11 15:33] LABS: APPEARANCE, URINE CLEAR (CLEAR); BACTERIA, URINE AUTO NEGATIVE (NEGATIVE); BILIRUBIN, URINE AUTO NEGATIVE (NEGATIVE); BLOOD, URINE BLOOD NEGATIVE (NEGATIVE); COLOR, URINE YELLOW (YELLOW); GLUCOSE, URINE (UA) AUTO NEGATIVE (NEGATIVE); KETONE, URINE AUTO NEGATIVE (NEGATIVE); LEUKOCYTE ESTERASE, URINE AUTO NEGATIVE (NEGATIVE); MUCUS, URINE SMALL (NEGATIVE); NITRITE, URINE AUTO NEGATIVE (NEGATIVE); PROTEIN, URINE AUTO NEGATIVE (NEGATIVE); RBC, URINE AUTO 0 /HPF (0-3); SPECIFIC GRAVITY URINE AUTO 1.017 (1.002-1.035); SQUAMOUS EPITHELIAL CELL UR AU 1 /HPF (0-6); UROBILINOGEN, URINE AUTO 0.2 mg/dL (0.0-2.0); WBC, URINE AUTO 3 /HPF (0-3)
== END ==
LOC: M LAB REF 15:21
PROVIDERS: ATTEND Physician Assistant Medical
DX: I10 Essential (primary) hypertension (principal)

== ENCOUNTER → 2025-04-07 | Outpatient (RCR) | payer MEDICAID | LOC: M PT 03-08 14:13 | PROVIDERS: ATTEND Physician Assistant Medical | DX: R26.2 Difficulty in walking, not elsewhere classified (principal) ==

== ENCOUNTER 2025-04-21 14:15 | Outpatient (RCR) | payer MEDICAID | END 2025-05-08 | LOC: M PT 14:15 | PROVIDERS: ATTEND Physician Assistant Medical | DX: G80.9 Cerebral palsy, unspecified (principal) ==

== ENCOUNTER 2025-05-10 09:01 | Outpatient (RCR) | payer MEDICAID | END 2025-06-07 | LOC: M PT 09:01 | PROVIDERS: ATTEND Physician Assistant Medical | DX: G80.9 Cerebral palsy, unspecified (principal); R26.89 Other abnormalities of gait and mobility ==